=== PATIENT | male | born 1980 | race Caucasian/White ===

== ENCOUNTER 2019-02-03 12:18 | Emergency (ER) | payer SELFPAY ==
[~2019-02-03] VITALS: Ht 170.2 cm; Wt 77.3 kg
[~2019-02-03 12:18] MED LIST: CEPH500 PO; NOCURR
[2019-02-03] MEDS ORDERED: KETOROLAC TROMETHAMINE 30 MG/ML VIAL IM ONE (16:00)
[2019-02-03] MEDS ORDERED: TiZANidine HCL 4 MG TABLET PO ONE (16:00)
[2019-02-03 17:07] VITALS: BP 118/78
== END 2019-02-03 17:09 | disposition home or self-care (01) ==
LOC: EMS 12:18
DX: S16.1XXA Strain of muscle, fascia and tendon at neck level, initial encounter (principal); F17.210 Nicotine dependence, cigarettes, uncomplicated; V49.9XXA Car occupant (driver) (passenger) injured in unspecified traffic accident, initial encounter; Y93.89 Activity, other specified; Y92.488 Other paved roadways as the place of occurrence of the external cause; Y99.8 Other external cause status
CPT/HCPCS: 72125; 96372; 99284; J1885